=== PATIENT | female | born 1960 | race Caucasian/White ===

== ENCOUNTER 2017-05-11 10:50 | Inpatient (IN) ==
--- OUTSIDE RECORDS SUMMARY | 2017-05-11 11:08 | External Medical Summary ---
:1960 Author Organization eClinicalWorks Care Team Providers Name Role Phone Jorgito Cruz Provider Role Unavailable Allergies No Known Allergies Problems No Known Problems Medications No Known Medications Results No Known Results Summary Purpose eClinicalWorks Submission
[2017-05-11 11:22] VITALS: BMI 34.0
[2017-05-11] MEDS: INSULIN ASPART 100unit/ml INJECTION SQ SCH ×2 (13:56→17:48)
--- NOTE | 2017-05-11 14:53 | IRU History & Physical Report ---
HPI IRU Date: Date: 05/11/17 Time: 1441 Chief complaint: I'm weak HPI: Ms. Villegas is a very pleasant 56-year-old female referred by Dr. Umm Patel from [facility]. Her primary care provider is Dr. Gabriela Hernández in [facility]. History is obtained predominantly from the patient was secondarily from transfer records. The patient states that on the day of the Super Bowl, April 30, 2017 she developed recurrent nausea and vomiting. She vomited at least 7 times. She thought she was improving but also noted abdominal pain. She stayed home and did not go to work all week and apparently was not checking her blood sugars. It is not clear if she was taking her insulin or not. The patient had not called in and therefore a welfare check was performed. Responders had to break in to the patient's house. She was found on the floor. She does not know how long she was down. The first thing she remembers is awakening in the hospital. She was initially taken to the emergency department in [place] where she was intubated. She was hypothermic and had a blood sugar of over 1000 and had evidence of diabetic ketoacidosis. pH was 6.8. She was transferred immediately to [facility] in [place]. She was admitted to the critical care unit with severe diabetic ketoacidosis, metabolic acidosis, acute hypoxemic respiratory failure. She was on the mechanical ventilator from May 05 through May 07. She also had hyponatremia and hyperkalemia. She did have evidence of acute renal failure, rhabdomyolysis and pancreatitis. She was found to have new onset atrial fibrillation as well as a urinary tract infection. During that stay she demonstrated paroxysmal atrial fibrillation with rapid ventricular response. Heart rates were as high as 160s during the evening of 01/2018. Platelets did drop to 65,000 although assessment for heparin-induced cytopenia antibody were negative. She did require intravenous vasopressors for treatment of shock. She had evidence of multiorgan failure due to severe hypotension. At the present time she states that she simply feels very debilitated and weak. She has a lot of edema in her lower extremities which she states is not normal for her. Likely this is related to the fluid resuscitation. Last night at [facility] she did fall on her way to the bathroom. There is a small abrasion to her right elbow. No other trauma is noted and she denies any head trauma. The patient states that she has had diabetes for over 10 years. She was taking Lantus 16 units at at bedtime daily although actually did not recall the name of the insulin. She did not take any mealtime insulin. Her A1c was around 13% on 05/06/2017 at via [facility]. The patient states that she has not been very faithful about checking her blood sugars recently. She has lost from 300 pounds down to 190 pounds over the past several months. She says this was partly by intention. The patient states that she has had depression over the years. She is currently on Cymbalta for at least 10 years. In addition she has a rather flat affect and apathetic outlook. I asked if she would like to see a psychiatrist and she indicates that she would. The patient lives independently in her own home in [place]. She has 3 steps to get into her home from one direction and 2 steps from another direction. She is very independent at home and travels to a 10 [place] area with her job. Because the patient's recent severe/critical illness requiring mechanical ventilation and evidence of multiorgan failure, she has developed evidence of critical illness myopathy. This is also confirmed by her requirement for moderate assist for toilet transfers and maximum assist for walking. Prior level of functioning is as follows: She was independent for all parameters tested. Current level of functioning is as follows: She is independent for eating, requires supervision for grooming, requires moderate assistance for bathing, supervision for upper body dressing but moderate assistance for lower body dressing. She requires minimum assistance for toileting, supervision for bed/ chair/wheelchair transfers and moderate assistance for toilet transfers. She requires maximum assistance for walking. The patient has occasional swaying motion with ambulation and 2 episodes of scissoring. Patient has evidence of balance problems, difficulty with basic ADLs, mobility and safety awareness. Speech therapy has evaluated her and she was initially limited to soft solids with nectar thick liquids without straws. However, those restrictions have been lifted at the present time. She is unable to stand up from a sitting position without using significant arm strength support. The following medical conditions are noted and require active monitoring and/or management: 1. Critical illness myopathy: Based on current physical exam as well as requiring moderate assistance for toilet transfers and maximum assistance for walking. 2. Atrial fibrillation, intermittent with occasional rapid ventricular response 3. Diabetes mellitus type 1, not controlled with recent episode of diabetic ketoacidosis 4. Recent thrombocytopenia The following therapies will be needed: 1. Physical therapy: for transfers and ambulation and stairs. 2. Occupational therapy: for ADL's and transfers. 3. Medical management: for the above conditions. 4. 24 hour Rehabilitation Nursing to monitor and address the followin. Dietitian: For assistance with her diabetes management [facility] Patient Stated Medical History Cataracts Yes Diabetes Mellitus Type 2 Yes: 2008 Constipation No Hx Incontinence No Depression Yes Medical History Updates: 1. Diabetes mellitus for at least 10 years. She states she does not consistently check her blood sugars. 2. Benign essential hypertension. 3. Depression. 4. Intermittent atrial fibrillation (new diagnosis) Surgical History: Appendectomy Family History: Patient's father had heart surgery in his younger years and although he of a heart attack in his 80s. Mother is . She had dementia and had fallen in the detention. Also had strokes. 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 Review of Systems - Constitutional Constitutional: Present: fatigue, malaise, weight loss (patient lost from 300 pounds down 190 pounds over the last several months.). Absent: anorexia, chills , fever(s), headache(s), lethargy, night sweats, weakness, weight gain - EENMT Eyes: Absent: blurry vision, change in vision, diplopia Mouth/Throat: Absent: changes in swallowing, painful swallowing, change in taste , bleeding gums, change in voice - Cardiovascular Cardiovascular: Absent: chest pain, palpitations, syncope, dyspnea on exertion, orthopnea, edema, cyanosis, heart murmur Rhythm: Present: regular rhythm Vascular: Absent: intermittent claudication, pedal edema, unilateral swelling - Respiratory Respiratory: Present: cough (patient has a cough without sputum production, noted since the current episode of DKA.). Absent: dyspnea, hemoptysis, dyspnea on exertion, wheezing, pain on inspiration, chest congestion, excessive phlegm production - Gastrointestinal Gastrointestinal: Present: diarrhea (she has developed diarrhea recently.), dyspepsia (she describes symptoms of reflux esophagitis.). Absent: abdominal pain, change in bowel habits, constipation, dysphagia, early satiety, hematochezia, melena, nausea, vomiting - Genitourinary Genitourinary: Present: urinary incontinence - Musculoskeletal Musculoskeletal: Present: myalgias. Absent: abnormal gait, arthralgias, back pain, joint swelling, limited range of motion, muscle weakness - Integumentary/Breasts Integumentary: Absent: alopecia, erythema, lesions, pruritus, rash, jaundice - Neurological Neurological: Absent: abnormal gait, abnormal movements, abnormal speech, confusion, convulsions, dizziness, focal weakness, frequent falls, headache(s), loss of vision, memory loss, numbness, paresthesias, tremor(s) - Psychiatric Psychiatric: Present: depression, other (apathetic appearance). Absent: abnormal sleep pattern, anxiety - Endocrine Endocrine: Absent: cold intolerance, flushing, heat intolerance, palpitations - Hematologic/Lymphatic Hematologic/Lymphatic: Absent: easy bleeding, easy bruising, lymphadenopathy - Allergic/Immunologic Allergic/Immunologic: Absent: urticaria Medications Home Medications Medication Instructions Recorded Confirmed Type Apixaban [Eliquis] 5 mg PO BID 05/11/17 05/11/17 History Insulin Aspart [Novolog] 7 unit SQ TIDWM 05/11/17 05/11/17 History Insulin Detemir [Levemir] 20 unit SQ HS 05/11/17 05/11/17 History Levothyroxine Tab [Synthroid] 1 tab PO ACB 05/11/17 05/11/17 History Metoprolol Tartrate [Lopressor] 25 mg PO BIDWM 05/11/17 05/11/17 History Simvastatin [Zocor] 40 mg PO HS 05/11/17 05/11/17 History Results IRU - Labs Labs: Outside records from [facility] have been reviewed. Exam Vital Signs: Temperature 97.9 F 05/11/17 11:17 Pulse Rate 83 05/11/17 11:17 Respiratory Rate 16 05/11/17 11:17 Blood Pressure 134/72 05/11/17 11:17 Pulse Oximetry 96 05/11/17 11:17 Height/Weight/BMI: Height 1.73 m Weight 101.5 kg Body Mass Index 34.0 - Constitutional Present: no acute distress, well nourished, well developed, obese, cooperative - Routine HEENT Exam Head: Present: normocephalic, atraumatic. Absent: cushingoid faces, abrasion, laceration, hematoma Eye: Present: EOMI, PERRL, scleral injection (left eye is somewhat red.). Absent: conjunctival icterus, periorbital swelling, nystagmus ENT: Present: mucous membranes moist, oropharynx clear Comments: Patient has 2 aphthous lesions on the left lower lip. - Routine Neck Exam Present: supple, full ROM, trachea midline. Absent: lymphadenopathy, thyromegaly, tenderness, swelling - Routine Chest/Breast/Axilla Exam Chest wall: Absent: tenderness, mass Axillae: Absent: lymphadenopathy, mass - Routine Respiratory Exam Present: CTA bilaterally. Absent: accessory muscle use, decreased breath sounds , prolonged expiratory phase, rales, respiratory distress, rhonchi, stridor, wheezes, crackles, distant breath sounds - Routine Cardiovascular Exam Present: RRR, S1, S2, no murmur. Absent: gallop, S3, S4, click, irregular rhythm - Routine Abdominal Exam Present: soft, normoactive bowel sounds, non distended, non tender. Absent: rebound, guarding, firm, rigid, organomegaly, mass, hernia, wound - Routine Extremities Exam Present: no edema, non tender, pulses intact, normal capillary refill. Absent: cyanosis, clubbing - Routine Back/Spine/Pelvis Exam Back/Spine: Present: full ROM. Absent: scoliosis, kyphosis - Routine Skin Exam Present: intact, dry, warm. Absent: cyanosis, erythema, pallor, mottling, petechiae, urticaria, lesions, jaundice - Routine Neurological Exam Present: alert, oriented X3, CN II-XII intact, motor deficit (patient demonstrates proximal muscle weakness upon examination. This is most obviously noted when she is observed to stand from sitting position.), moving all extremities, normal speech - Routine Psychiatric Exam Present: normal affect, normal thought process, cooperative, good insight, good judgment. Absent: depressed, anxious Sepsis Assessment - Evaluation Severe Sepsis: none seen IRU A/P (1) Myopathy Current visit: Yes Status: Acute Patient displays evidence of critical illness myopathy. Proximal musculature appears to be weak based on examination and screening data. She will require PT and OT to improve her functional status. (2) DM type 1 (diabetes mellitus, type 1) Qualifiers: Diabetes mellitus complication status: without complication Qualified Code( s): E10.9 - Type 1 diabetes mellitus without complications Current visit: Yes Status: Chronic Patient has history of diabetes mellitus type 1. She was on only long-acting insulin she states. She did not monitor her blood sugars regularly. She has had a recent episode of diabetic ketoacidosis with resultant metabolic acidosis, respiratory failure, acute kidney injury and multiorgan failure. She'll require close medical management and monitoring. (3) Thrombocytopenia Current visit: Yes Status: Acute Based on transfer records her platelet count was down to 66,000. She is at risk for bleeding. We will monitor this carefully. (4) Atrial fibrillation Qualifiers: Atrial fibrillation type: paroxysmal Qualified Code(s): I48.0 - Paroxysmal atrial fibrillation Current visit: Yes Status: Acute She has a new diagnosis of atrial fibrillation symptoms with rapid ventricular response. She is on Eliquis. We will monitor this carefully. (5) Depression Qualifiers: Depression Type: unspecified Qualified Code(s): F32.9 - Major depressive disorder, single episode, unspecified Current visit: Yes Status: Chronic Patient history of depression. She would like to visit with a psychiatrist in this regard. (6) Aphthous ulcer of mouth Current visit: Yes Status: Acute DVT Prophylaxis: SCD's, Eliquis Resuscitation Status: Full Code - Course Hospital Course: Michael Nichole MD: - Interventions to Obtain Goals PT Treatment Plan: Balance/Proprioception, Functional Activities, Gait Training , Patient/Family Education, Therapeutic Exercise OT Treatment Plan: ADL (Basic Care), Balance Training, IADL, Pt./Family Education Goals Progress/Modifications: This medically complex patient will be seen by physical therapy and occupational therapy. She has evidence of myopathy and will require significant strengthening in a multidisciplinary manner. She has deficits in ADLs as well as ambulation etc. The patient will also be monitored by rehabilitation nursing to monitor her blood sugars, blood pressure and evidence of hypoxemic respiratory failure. She will require medical supervision.
--- NOTE | 2017-05-11 15:27 | IRU 24Hr Post Admit Eval ---
24 Hr Post Admission Physical - Relevant Changes Relevant Changes: No Reviewed: I have reviewed the patient's information and concur with the finding and results of the pre-admission screen. Certification: I certify the patient for rehabilitation. - Patient Condition (1) Myopathy Status: Acute Code(s): G72.9 - Myopathy, unspecified Classification: Present on IRF Admission, IRF Tx That Should Address Diagnosis, Diagnosis Requiring Medical Follow Up (2) DM type 1 (diabetes mellitus, type 1) Status: Chronic Qualifiers: Diabetes mellitus complication status: with hyperglycemia Qualified Code(s) : E10.65 - Type 1 diabetes mellitus with hyperglycemia Code(s): E10.9 - Type 1 diabetes mellitus without complications Classification: Present on IRF Admission, IRF Tx That Should Address Diagnosis, Diagnosis Requiring Medical Follow Up (3) Thrombocytopenia Status: Acute Code(s): D69.6 - Thrombocytopenia, unspecified Classification: IRF Tx That Should Address Diagnosis, Diagnosis Requiring Medical Follow Up (4) Atrial fibrillation Status: Acute Qualifiers: Atrial fibrillation type: paroxysmal Qualified Code(s): I48.0 - Paroxysmal atrial fibrillation Code(s): I48.91 - Unspecified atrial fibrillation Classification: Present on IRF Admission, IRF Tx That Should Address Diagnosis, Diagnosis Requiring Medical Follow Up (5) Depression Status: Chronic Qualifiers: Depression Type: unspecified Qualified Code(s): F32.9 - Major depressive disorder, single episode, unspecified Code(s): F32.9 - Major depressive disorder, single episode, unspecified Classification: Present on IRF Admission, IRF Tx That Should Address Diagnosis, Diagnosis Requiring Medical Follow Up (6) Aphthous ulcer of mouth Status: Acute Code(s): K12.0 - Recurrent oral aphthae Classification: Present on IRF Admission, IRF Tx That Should Address Diagnosis, Diagnosis Requiring Medical Follow Up - Prior Functional Status Lives With: Alone Residence Type: Apartment/Private Home Assitive Devices: None Prior Functional Status: Indep. at home or school, Indep. w/ IADL - Current Functional Status Current Level of Function: Current level of functioning is as follows: She is independent for eating, requires supervision for grooming, requires moderate assistance for bathing, supervision for upper body dressing but moderate assistance for lower body dressing. She requires minimum assistance for toileting, supervision for bed/ chair/wheelchair transfers and moderate assistance for toilet transfers. She requires maximum assistance for walking. The patient has occasional swaying motion with ambulation and 2 episodes of scissoring. Patient has evidence of balance problems, difficulty with basic ADLs, mobility and safety awareness. Speech therapy has evaluated her and she was initially limited to soft solids with nectar thick liquids without straws. However, those restrictions have been lifted at the present time. She is unable to stand up from a sitting position without using significant arm strength support. Patient Requirements: The patient requires oversight by rehabilitation physician to manage their rehabilitation treatment plan and multidisciplinary approach to care that can only be provided in an IRF and requires a multidisciplinary approach to care, provided by professional PTs, OTs, STs, dieticians, RTs, rehabilitation nurses and is not available in lesser levels of care. Limitations Req: Mobility Impairment, ADL Impairment Physical Therapy Minutes: 90 Occupational Therapy Minutes: 90 Therapy: The patient is to receive therapy at least 5 days a week. - Complications/Comorbidities Impact on Functional Outcomes: The patient's myopathy weakness may negatively impact her functional outcome. Barriers to Discharge: Weakness, Balance, Endurance - Plan to Avoid Complications Plan to Avoid Complications: The patient cannot receive this care in a lesser intensive setting such as [facility] or Outpatient Therapy due to the patient requiring the following : The patient requires close monitoring of her blood sugars, blood pressure as well as a multidisciplinary approach with PT, OT and 24 rehabilitation nursing to allow her to regain her strength and functional capabilities. Because of her medical complexity, she requires medical supervision. .
[2017-05-11] MEDS ORDERED: PNEUMOCOCCAL 13 VACCINE 0.5ml INJECTION IM ONE (18:04)
[2017-05-11] MEDS: APIXABAN 5 MG TABLET PO SCH (20:40)
[2017-05-11] MEDS: INSULIN DETEMIR 100unit/ml INJECTION SQ SCH (20:40)
[2017-05-11] MEDS: SIMVASTATIN 40 MG TABLET PO SCH (20:40)
[2017-05-12] MEDS: ACETAMINOPHEN 325 MG TABLET PO PRN ×2 (05:22→21:56)
[2017-05-12] MEDS: LEVOTHYROXINE 100 MCG TABLET PO SCH (05:47)
--- NOTE | 2017-05-12 08:55 | Consult Note ---
Consult Information - Data of Consult Consult date: 05/11/17 Requesting Physician: Michael Nichole MD Primary Care Provider: Dr. Hernández in [place] - Consult Narrative Reason for consult: DM, A-fib, hypokalemia History of present illness: Donita Villegas is a 56-year-old woman seen in consultation from Dr. Nichole. She was transferred to [facility] on 05/11/17 from [facility]. She states that she first became ill on Monday on 04/30/17 with nausea, vomiting and abdominal pain. She spoke with one of her sisters on 05/03/17 and reported she was feeling a bit better, but was reportedly vague about blood sugar results and whether or not she took insulin. She didn't present to work all week , nor had she called in. 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, and this behavior is unlike her. A welfare check was called, and she was found down on 05/05/17 and was initially transferred to the emergency department in [place] , which is where she lives. On arrival there, she was severely acidotic with a pH of 6.8 and also had a blood sugar over 1000 and K of 6.7. She was stabilized , intubated and transferred to [place]. There she was diagnosed with severe diabetic ketoacidosis treated with insulin and bicarb for metabolic acidosis, acute hypoxemic respiratory failure requiring mechanical ventilation from through 05/07/17, new onset A. fib with RVR with rates into the 160s, MARIAN with initial creatinine of 2.27, metabolic encephalopathy. She required vasopressor support for hypotension, and a central line was placed in her IJ. Her rhythm converted to sinus rhythm prior to discharge. Hgb A1c was 13.3%. She had rhabdomyolysis (CK 1912) and pancreatitis (lipase 910). She was also diagnosed with a mild UTI, treated with Rocephin. She also had problems with electrolytes with hyponatremia (low of 128), hyperkalemia (5.8 on admission and treated with calcium at [place]), and later hypokalemia, hypophosphatemia, which were corrected. Total bili initially was 1.4 and ammonia was 91; both of these labs showed rapid improvement. Platelet count dropped to 65,000, though heparin-induced cytopenia antibody was negative. TSH was slightly elevated at 5.88, free T4 was normal at 0.8. Prealbumin was low at 13. Multiple radiologic tests were done: Head CT was negative; Echo showed hyperdynamic left ventricle with EF of 80-85% but otherwise was unremarkable; CXR by 05/06 was showing edema ; EKG by 05/06 was sinus. On day of discharge, K was still low at 3.0; Na 141, BUN was 8, creatinine 0.68. Her art line, central line, and Browne were dc'd prior to transfer to IRU. Donita was seen in the morning of 05/12/17. She feels weak overall. She feels achy everywhere. She has had drooling problems ever since her recent hospitalization , has a sore spot on her lower lip, and her throat is a little sore. She has a mild cough, also since hospitalization. She gets dizzy/lightheaded if she stands too quickly, but this is rare. She had a fall at [facility] and has a small skin tear to her right elbow. She denies abdominal pain, nausea, vomiting, diarrhea, or constipation, or hematochezia, but her bowels have been a little loose. She infrequently gets heartburn and takes TUMS at home. She has been edematous, also noted just since hospitalization. No chest pain, palpitations, SOA, fever, dysuria or urinary retention. No paresthesias or focal neuro deficits. She states that she usually takes Cymbalta 60 mg each night for depression, but for some reason this medication wasn't continued. She would like to restart Cymbalta. Past Medical History Patient Stated Medical History Cataracts Yes Diabetes Mellitus Type 2 Yes: 2008 Constipation No Hx Incontinence No Depression Yes Medical History Updates: 1. Diabetes mellitus for at least 10 years. She states she does not consistently check her blood sugars. 2. Benign essential hypertension. 3. Depression. 4. Intermittent atrial fibrillation (new diagnosis) Surgical History: Appendectomy Family History Updates: Father of a heart attack in his 80s. Mother had dementia, strokes, and hx of falling. She at age 86. She has 1 older brother who was recently diagnosed with lung cancer. Two sisters are healthy. 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 [employer] Current residence: Apartment/Private Home Review of Systems All systems PM: 10-point ROS was reviewed, no additional remarkable complaints except - Constitutional Constitutional: Present: as per HPI - EENMT Eyes: Present: requires corrective lenses Balance: Present: as per HPI Nose: Absent: obstruction Mouth/Throat: Present: as per HPI - Cardiovascular Cardiovascular: Present: as per HPI Vascular: Present: see HPI - Respiratory Respiratory: Present: as per HPI - Gastrointestinal Gastrointestinal: Present: as per HPI - Genitourinary Genitourinary: Present: as per HPI - Musculoskeletal Musculoskeletal: Present: as per HPI - Integumentary/Breasts Integumentary: Present: as per HPI - Neurological Neurological: Present: as per HPI - Psychiatric Psychiatric: Present: as per HPI - Endocrine Endocrine: Present: as per HPI - Hematologic/Lymphatic Hematologic/Lymphatic: Present: easy bleeding, easy bruising (for about 1 year) Medications Home Medications Medication Instructions Recorded Confirmed Type Apixaban [Eliquis] 5 mg PO BID 05/11/17 05/11/17 History Insulin Aspart [Novolog] 7 unit SQ TIDWM 05/11/17 05/11/17 History Insulin Detemir [Levemir] 20 unit SQ HS 05/11/17 05/11/17 History Levothyroxine Tab [Synthroid] 1 tab PO ACB 05/11/17 05/11/17 History Metoprolol Tartrate [Lopressor] 25 mg PO BIDWM 05/11/17 05/11/17 History Simvastatin [Zocor] 40 mg PO HS 05/11/17 05/11/17 History Allergies Allergy/AdvReac Type Severity Reaction Status Date / Time No Known Allergies Allergy Verified 05/11/17 17:47 Exam Vital Signs: Temperature 98.1 F 05/11/17 21:47 Pulse Rate 81 05/12/17 00:00 Respiratory Rate 16 05/11/17 21:47 Blood Pressure 128/72 05/11/17 21:47 Pulse Oximetry 94 05/11/17 21:47 Height/Weight/BMI: Height 1.73 m Weight 101.5 kg Body Mass Index 34.0 - Constitutional Present: no acute distress, well nourished, well developed - Routine HEENT Exam Head: Present: normocephalic Eye: Present: EOMI, PERRL. Absent: conjunctival icterus ENT: Present: mucous membranes moist Comments: mild subconjunctival hemorrhage to left eye - Routine Neck Exam Present: supple. Absent: lymphadenopathy - Routine Respiratory Exam Present: CTA bilaterally - Routine Cardiovascular Exam Present: RRR, S1, S2, murmur (systolic 2/6) - Routine Abdominal Exam Present: soft, non distended, non tender. Absent: normoactive bowel sounds ( slightly hypoactive) - Routine Extremities Exam Present: edema (2+ BLE), normal capillary refill - Routine Skin Exam Present: intact, dry, warm, wounds (abrasion to right elbow) - Routine Neurological Exam Present: alert, oriented X3, CN II-XII intact, normal speech - Routine Psychiatric Exam Present: normal affect, normal thought process, cooperative Results - Labs CBC & Chem 7: 05/12/17 04:34 05/12/17 15:23 Assessment and Plan Assessment and Plan: ASSESSMENT AND PLAN Recent hospitalization for Acute hypoxic respiratory failure requiring mechanical ventilation (extubated on 05/07/17); shock/multiorgan failure requiring vasopressor support; DKA and metabolic acidosis; severe dehydration; PAF with relatively normal echo; prerenal MARIAN (creatinine peaked at 2.27); mild pancreatitis; rhabdomyolysis; elevated total bilirubin and ammonia level; multiple electrolyte abnormalities; mild UTI treated with Rocephin and without urine culture; thrombocytopenia with platelet count of 65, and heparin was dc' d. She had a central line, art line, and Browne while hospitalized. On discharge , she also had a mild subconjunctival hemorrhage to her left eye, and a sore spot on her lower lip, presumably from ET tube. She was diagnosed with hypothyroidism and started on levothyroxine. Hypokalemia, POA. Unable to tolerate KDUR tablets; will give IV bolus and start KCl suspension. check mg. Repeat K this afternoon. DM2, uncontrolled, with hgb A1c of 13.3%, requiring long-term insulin therapy. Hyperglycemic on admission with BGM >200 -- will monitor BGM for 24 hrs before making adjustments. PAF, now sinus. Monitor tele. CHADS2-VASC is 3 for which she has indication for lifelong anticoagulation for stroke prophylaxis. Continue Eliquis and BB. Will need to f/u with Dr. Sofia in 2-4 weeks. Acute respiratory failure, resolved. IS, activity. MARIAN, resolved. Monitor renal status. Encephalopathy has resolved. Depression. Restart Cymbalta (reportedly home med). Infrequent heartburn. TUMS PRN. Continue Synthroid. Thrombocytopenia. Monitor counts. SCDs for PPX. HIT antibodies negative @ [facility]. Left eye subconjunctival hemorrhage. saline eye drops PRN Hyperlipidemia - on statin. Obesity with BMI 34.0 Thank you for this consultation. We will follow Donita along with you during her IRU course. Outside records reviewed in detail. DVT Prophylaxis: SCD's Resuscitation Status: Full Code - Physician Narrative Physician: Palmer Perla MD Narrative: Date: 05/12/17 Time: 1914 Have independently interviewed and examined pt. Chart reviewed. Case discussed with my BINDERY CUTTER OPERATOR. Above care plan developed with my supervision; agree with above. Admitted to IRU for restorative modalities following critical illness. Today has been rough-not able to do therapy. Needing IV potassium. Had frequent loose stool. Not slight nausea. Oral drive decreased. Breathing stable-some cough with deep breathing, chest congestion decreasing. Not having chest pressure or pain. Lungs: decreased, no distress CV: regular AB: soft nt/nd BS decreased EXT: + 3BLE MSE: awake alert Plan: Agree with admission to IRU to maximize functional status. PT/OT to help improve abilities. Monitor blood sugars, adjusting insulins as needed. Continue medications initiated at prior hospital. Would hold on LORI/ARB at this time due to resolving MARIAN, need to consider in future secondary to DM. Encourage pulmonary toilet. Will need monitoring of electrolytes and renal status due to medications. Medically stable for IRU floor activities. Hospital Course Summary Disclaimer: The visit summary below is not to be considered part of the above Progress Note. Hospital Course: ASSESSMENT AND PLAN Recent hospitalization for Acute hypoxic respiratory failure requiring mechanical ventilation (extubated on 05/07/17); shock/multiorgan failure requiring vasopressor support; DKA and metabolic acidosis; severe dehydration; PAF with relatively normal echo; prerenal MARIAN (creatinine peaked at 2.27); mild pancreatitis; rhabdomyolysis; elevated total bilirubin and ammonia level; multiple electrolyte abnormalities; mild UTI treated with Rocephin and without urine culture; thrombocytopenia with platelet count of 65, and heparin was dc' d. She had a central line, art line, and Browne while hospitalized. On discharge , she also had a mild subconjunctival hemorrhage to her left eye, and a sore spot on her lower lip, presumably from ET tube. She was diagnosed with hypothyroidism and started on levothyroxine. Hypokalemia, POA. Unable to tolerate KDUR tablets; will give IV bolus and start KCl suspension. check mg. Repeat K this afternoon. DM2, uncontrolled, with hgb A1c of 13.3%, requiring long-term insulin therapy. Hyperglycemic on admission with BGM >200 -- will monitor BGM for 24 hrs before making adjustments. PAF, now sinus. Monitor tele. CHADS2-VASC is 3 for which she has indication for lifelong anticoagulation for stroke prophylaxis. Continue Eliquis and BB. Will need to f/u with Dr. Sofia in 2-4 weeks. Acute respiratory failure, resolved. IS, activity. MARIAN, resolved. Monitor renal status. Encephalopathy has resolved. Depression. Restart Cymbalta (reportedly home med). Infrequent heartburn. TUMS PRN. Continue Synthroid. Thrombocytopenia. Monitor counts. SCDs for PPX. HIT antibodies negative @ [facility]. Left eye subconjunctival hemorrhage. saline eye drops PRN Hyperlipidemia - on statin. Obesity with BMI 34.0 Addendum entered and electronically signed by Yoly Bailey APRN 05/12/17 15: 47: BGM increased >300 prior to lunch. Gave 11U and increased mealtime insulin to 10U TID. After lunch BG increased >400 and moderate dosed SSI ordered. Diabetic education being done.
[2017-05-12] MEDS: INSULIN ASPART 100unit/ml INJECTION SQ SCH ×2 (09:49→18:21)
[2017-05-12] MEDS: LIDOCAINE 1% INJ 10 MG, POTASSIUM CHLORIDE INJ 10 MEQ in NS 100 ML IV SCH ×4 (09:50→13:24)
[2017-05-12] MEDS: APIXABAN 5 MG TABLET PO SCH ×2 (09:50→21:30)
--- NOTE | 2017-05-12 10:19 | IRU Progress Note ---
- Subjective/Serverity of Illness Date: 05/12/17 Ms. Villegas is settling into the rehabilitation routine. She says that she is doing reasonably well although the left eye rivas a bit. There is some scleral injection. This is been red ever since she awakened in [place] after her DKA experience. The patient has developed significant hypokalemia and is on intravenous potassium rider as well as oral potassium supplementation. For this reason therapy is being held. She denies any chest pain or shortness of breath. Her appetite is reasonably good. Update on medical problems are actively monitoring or managing as follows: 1. Critical illness myopathy: No change at the present time. She is just getting started with therapy. 2. Atrial fibrillation, intermittent with occasional rapid ventricular response : Her heart rhythm sounds regular at the present time. She does have a systolic murmur. She says that she has had this investigated with an echocardiogram previously. She is on Eliquis. 3. Diabetes mellitus type 1, not controlled with recent episode of diabetic ketoacidosis: Her blood sugars are running a bit high at the present time. Management per hospitalists. 4. Recent thrombocytopenia: This has resolved 5. Hypokalemia: I told her that this was extremely common after being treated for DKA (on the basis of acidosis). She is likely total body depleted with regard to her potassium. She is now on supplemental potassium intravenously and orally. However until this comes up we will hold therapy. Exam Vital Signs: Temperature 98.1 F 05/11/17 21:47 Pulse Rate 81 05/12/17 00:00 Respiratory Rate 16 05/11/17 21:47 Blood Pressure 128/72 05/11/17 21:47 Pulse Oximetry 94 05/11/17 21:47 Height/Weight/BMI: Height 1.73 m Weight 101.5 kg Body Mass Index 34.0 - Constitutional Present: no acute distress, well nourished, well developed, obese, cooperative - Routine HEENT Exam Head: Present: normocephalic Eye: Present: EOMI, scleral injection (left sclera is a bit red. Pupils reactive.) ENT: Present: mucous membranes moist, dentition normal - Routine Neck Exam Present: supple - Routine Respiratory Exam Present: CTA bilaterally. Absent: dyspnea, decreased breath sounds, wheezes, crackles - Routine Cardiovascular Exam Present: RRR, S1, S2, murmur (murmur noted left sternal border grade 2/6.). Absent: S3, S4 - Routine Abdominal Exam Present: soft, normoactive bowel sounds, non distended. Absent: tenderness - Routine Extremities Exam Present: edema (trace to 1+ edema as before.), normal capillary refill - Routine Skin Exam Present: dry, warm - Routine Neurological Exam Present: alert, oriented X3, CN II-XII intact - Routine Psychiatric Exam Present: normal affect, cooperative. Absent: good insight (I feel as though the patient may minimize her symptoms and problems.) Results IRU - Labs Labs: Have reviewed laboratory and other chart information. IRU A/P (1) Myopathy Current visit: Yes Status: Acute Continues to demonstrate evidence of critical illness myopathy. We are holding therapy until potassium improved. (2) DM type 1 (diabetes mellitus, type 1) Qualifiers: Diabetes mellitus complication status: with hyperglycemia Qualified Code(s) : E10.65 - Type 1 diabetes mellitus with hyperglycemia Current visit: Yes Status: Chronic Blood sugars running a bit high. Per hospitalist service. (3) Thrombocytopenia Current visit: Yes Status: Resolved Current platelet count is now normal. (4) Atrial fibrillation Qualifiers: Atrial fibrillation type: paroxysmal Qualified Code(s): I48.0 - Paroxysmal atrial fibrillation Current visit: Yes Status: Acute Sounds as though she is in a regular mechanism at present. She is on Eliquis. (5) Depression Qualifiers: Depression Type: unspecified Qualified Code(s): F32.9 - Major depressive disorder, single episode, unspecified Current visit: Yes Status: Chronic In addition to depression which she expresses, she seems to have an almost apathetic outlook. Awaiting psychiatry evaluation. (6) Aphthous ulcer of mouth Current visit: Yes Status: Acute Patient using "Swizzle" solution. DVT Prophylaxis: SCD's, Eliquis Resuscitation Status: Full Code - Course Hospital Course: Michael Nichole MD: 05/12/17 10:21 Patient has been cooperative with therapy. Potassium now although and on supplement. Heart sounds regular. Sugars running a bit high. - Interventions to Obtain Goals PT Treatment Plan: Balance/Proprioception, Functional Activities, Gait Training , Patient/Family Education, Therapeutic Exercise OT Treatment Plan: ADL (Basic Care), Balance Training, IADL, Pt./Family Education Goals Progress/Modifications: Time spent with patient and on floor reviewing data and documentin min Medical decision-making: I made the decision to hold therapy at the present time in view of her hypokalemia. She is asymptomatic at the present time and receiving supplemental potassium both intravenously and orally. We will reassess potassium (per hospitalist service). She does have some scleral redness on the left side of uncertain etiology. There is no discharge noted. Finally, her blood sugars are running a bit high. Please note that the patient's individual plan of care was developed and documented today, requiring review of therapy notes, medical conditions and anticipated functional recovery. This required additional medical decision making with regard to interaction of the patient's medical issues with the anticipated functional recovery. Please see separate document
[2017-05-12] MEDS ORDERED: INSULIN ASPART 100unit/ml INJECTION SQ ONE ×2 (12:00→15:33)
[2017-05-12] MEDS: POTASSIUM CHLORIDE 20 MEQ/15 ML ORAL LIQUID PO SCH ×2 (12:15→18:21)
--- NOTE | 2017-05-12 14:01 | IRU Plan of Care ---
[facility] Overall Plan of Care - Date Date: 05/12/17 - Patient Impairments (1) Atrial fibrillation Qualifiers: Atrial fibrillation type: paroxysmal Qualified Code(s): I48.0 - Paroxysmal atrial fibrillation Code(s): I48.91 - Unspecified atrial fibrillation Status: Acute Classification: Present on IRF Admission, IRF Tx That Should Address Diagnosis, Diagnosis Requiring Medical Follow Up (2) Myopathy Code(s): G72.9 - Myopathy, unspecified Status: Acute Classification: Present on IRF Admission, IRF Tx That Should Address Diagnosis, Diagnosis Requiring Medical Follow Up (3) DM type 1 (diabetes mellitus, type 1) Qualifiers: Diabetes mellitus complication status: with hyperglycemia Qualified Code(s) : E10.65 - Type 1 diabetes mellitus with hyperglycemia Code(s): E10.9 - Type 1 diabetes mellitus without complications Status: Chronic Classification: Present on IRF Admission, IRF Tx That Should Address Diagnosis, Diagnosis Requiring Medical Follow Up (4) Depression Qualifiers: Depression Type: unspecified Qualified Code(s): F32.9 - Major depressive disorder, single episode, unspecified Code(s): F32.9 - Major depressive disorder, single episode, unspecified Status : Chronic Classification: Present on IRF Admission, IRF Tx That Should Address Diagnosis, Diagnosis Requiring Medical Follow Up - Relevant Changes Relevant Changes: No Reviewed: I have reviewed the patient's information and concur with the finding and results of the pre-admission screen. Certification: I certify the patient for rehabilitation. - Medical Prognosis Medical Prognosis: Good Vital Signs: Last Vital Signs Temp 98.3 F 05/12/17 08:00 Pulse 79 05/12/17 08:00 Resp 14 05/12/17 08:00 BP 133/69 05/12/17 08:00 Pulse Ox 97 05/12/17 08:00 - Anticipated Interventions Anticipated Interventions: The patient requires inpatient IRF care for PT, OT, and/or ST for residuals remaining from critical illness myopathy from severe DKA with multisystem failure resulting in muscular weakness and strength deficits. An individualized overall plan of care has been developed after careful review of the patient's preadmission screening, post admission physician evaluation and assessments of all therapy disciplines and/or other pertinent clinicians involved in treating the patient. This indicates medical necessity and rehabilitation necessity have been established through a thorough review of all available medical information. - Current Functional Status Failed Alternative Therapy: Arrived from Acute Care Patient Requires: The patient requires oversight by rehabilitation physician to manage their rehabilitation treatment plan and multidisciplinary approach to care that can only be provided in an IRF and requires a multidisciplinary approach to care, provided by professional PTs, OTs,rehabilitation nurses, and may require STs, dieticians, and RTS. This is not available in lesser levels of care. Physical Therapy Minutes: 90 Occupational Therapy Minutes: 90 Therapy: The patient is to receive therapy at least 5 days a week. - Anticipated LOS/Outcomes Anticipated Functional Outcome: Expected functional improvements include: -- Modified independant to independant ambulation with or without assistive device -- Modified independant to independant ADL's with or without assistive device -- Return to pre-morbid level of mobility -- Maximize level of mobility and ADL's to decrease burden on any caregiver involved with this patient's care It is anticipated the patient will have adequately controlled blood sugars at the time of dismissal, but requiring further outpatient follow-up. Anticipated Length of Stay (days): 10 Anticipated DC Destination: Home, Self Care, Home Health Service Home Safety Plan: The patient will be provided with the development of a Home Safety Plan for return to a home or home-like environment and and to ensure safety post discharge. - Plan to Avoid Complications Barriers to Attaining Goals: Weakness, Endurance, Medical Limitation Plan to Avoid Complications: The patient cannot receive this care in a lesser intensive setting such as Senior Living or Outpatient Therapy due to the patient requiring the following : Because of the patient's severe critical illness myopathy she is a fall risk and requires close monitoring by rehabilitation nursing. In addition, she requires close monitoring of her blood sugars in view of her recent diabetic ketoacidosis. She requires a multidisciplinary coordinated approach in view of her medical problems and severe weakness.
--- NOTE | 2017-05-12 16:21 | Neuropsychiatric Consult ---
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 Psychiatry was consulted due to concerns for uncontrolled depression. Per primary team: "The patient states that on the day of the Super Bowl, April 30, 2017 she developed recurrent nausea and vomiting. She vomited at least 7 times. She thought she was improving but also noted abdominal pain. She stayed home and did not go to work all week and apparently was not checking her blood sugars. It is not clear if she was taking her insulin or not. The patient had not called in and therefore a welfare check was performed. Responders had to break in to the patient's house.She was found on the floor. She does not know how long she was down. The first thing she remembers is awakening in the hospital. She was initially taken to the emergency department in [place] where she was intubated. She was hypothermic and had a blood sugar of over 1000 and had evidence of diabetic ketoacidosis. pH was 6.8. She was transferred immediately to [facility] in [place]. She was admitted to the critical care unit with severe diabetic ketoacidosis, metabolic acidosis, acute hypoxemic respiratory failure. She was on the mechanical ventilator from May 05 through May 07. She also had hyponatremia and hyperkalemia. She did have evidence of acute renal failure, rhabdomyolysis and pancreatitis. She was found to have new onset atrial fibrillation as well as a urinary tract infection. During that stay she demonstrated paroxysmal atrial fibrillation with rapid ventricular response. Heart rates were as high as 160s during the evening of 05/07/2017. Platelets did drop to 65,000 although assessment for heparin-induced cytopenia antibody were negative. She did require intravenous vasopressors for treatment of shock. She had evidence of multiorgan failure due to severe hypotension. At the present time she states that she simply feels very debilitated and weak. She has a lot of edema in her lower extremities which she states is not normal for her. Likely this is related to the fluid resuscitation. Last night at [facility] she did fall on her way to the bathroom. There is a small abrasion to her right elbow. No other trauma is noted and she denies any head trauma. The patient states that she has had diabetes for over 10 years. She was taking Lantus 16 units at at bedtime daily although actually did not recall the name of the insulin. She did not take any mealtime insulin. Her A1c was around 13% on 05/06/2017 at via [facility]. The patient states that she has not been very faithful about checking her blood sugars recently. She has lost from 300 pounds down to 190 pounds over the past several months. She says this was partly by intention. The patient states that she has had depression over the years. She is currently on Cymbalta for at least 10 years. In addition she has a rather flat affect and apathetic outlook. I asked if she would like to see a psychiatrist and she indicates that she would. The patient lives independently in her own home in [place]. She has 3 steps to get into her home from one direction and 2 steps from another direction. She is very independent at home and travels to a 10 [place] area with her job. Because the patient's recent severe/critical illness requiring mechanical ventilation and evidence of multiorgan failure, she has developed evidence of critical illness myopathy. This is also confirmed by her requirement for moderate assist for toilet transfers and maximum assist for walking." On interview patient admits multiple stressors. She says that she is to some extent a hoarder and now that she is in the hospital, her family has found out. One sister is very helpful but the other is quite vocal about her dislike of this and tells others. Another brother was recently diagnosed with lung cancer as well. Patient states that she was previously on Cymbalta 60mg PO q HS (she likes it in the evening) and found it helpful, but this wasn't restarted in the hospital. She has tried multiple other antidepressants, including Zoloft and Paxil, but Cymbalta was most helpful. She denies any history of suicide attempts or psychiatric hospitalizations, though she endorses some minor cutting years ago. She saw Dr. Aminah Hale and saw a therapist for a time which was very helpful. She would like to continue this after discharge. She endorses poor energy and lower motivation, moreso after d/c of Cymbalta. She continues to like to engage with others but prefers to do so out of her own house. Patient denies any history of HI or AVH. She denies any history of symptoms consistent with bipolar disorder. Depression: Loss of Energy, Changes in Appetite, Low Self Esteem [facility] Patient Stated Medical History Cataracts Yes Diabetes Mellitus Type 2 Yes: 2008 Constipation No Hx Incontinence No Depression Yes Medical History Updates: 1. Diabetes mellitus for at least 10 years. She states she does not consistently check her blood sugars. 2. Benign essential hypertension. 3. Depression. 4. Intermittent atrial fibrillation (new diagnosis) Surgical History: Appendectomy Family History: Paternal grandmother: depression - Social History Smoking status: Never smoker Substance use type: does not use Alcohol intake frequency: holidays/special occasions only Housing: house Household members: none Current occupational status: employed ( with [employer]) Current residence: Apartment/Private Home Social history: Has Bachelor's degree in . Never , no children. Has supportive family member and friends. Lives by herself. Review of Systems All systems: reviewed and no additional remarkable complaints except as stated - Constitutional Constitutional: Present: as per HPI, weakness, weight loss - EENMT Balance: Present: as per HPI Nose: Absent: obstruction Mouth/Throat: Present: as per HPI - Cardiovascular Cardiovascular: Present: as per HPI Vascular: Present: see HPI - Gastrointestinal Gastrointestinal: Present: diarrhea (today) - Neurological Neurological: Present: as per HPI. Absent: memory loss - Psychiatric Psychiatric: Present: as per HPI, depression Mental Status Exam Vitals: Last Vital Signs Temp 98.3 F 05/12/17 08:00 Pulse 88 05/12/17 08:00 Resp 14 05/12/17 08:00 BP 133/69 05/12/17 08:00 Pulse Ox 97 05/12/17 08:00 Height: 1.73 m Weight: 96.2 kg - Mental Status Exam Muscle Strength/Tone: Other (weakness part of admission to IRU) Dressing: Casual Grooming: Fair (likely decreased from baseline) Attitude: Cooperative Eye Contact: Fair Speech: Normal Volume: Normal Rhythm: Appropriate Rhythm Orientation: Oriented X4 Mood: Depressed Affect: Sad Rate of Thoughts: Appropriate Rate Thought Organization: Organized Associations: Intact Abstract Reasoning: Intact, able to abstract Thought Content: Ruminations, Somatic Concerns Perception/Psychotic: Perception Normal Language: Naming Intact Fund of Knowledge: Appropriate Memory: Grossly Intact Suicidal Ideation: Denies Homicidal Ideation: Denies Insight: Fair Judgement: Fair Impulse Control: Good - Laboratory Result Diagrams: 05/15/17 04:48 05/15/17 04:48 Laboratory Results - last 24 hr 05/11/17 05/12/17 05/12/17 19:47 04:34 04:34 WBC 6.6 RBC 3.60 L Hgb 11.3 L Hct 34.3 L MCV 95.3 MCH 31.4 MCHC 32.9 RDW Std Deviation 42.9 Plt Count 239 MPV 9.0 L Immature Gran % (Auto) 1.1 H Neut % (Auto) 64.2 Lymph % (Auto) 19.7 L Bandera % (Auto) 10.4 H Eos % (Auto) 4.1 H Baso % (Auto) 0.5 Neut # (Auto) 4.2 Lymph # (Auto) 1.3 Bandera # (Auto) 0.7 Eos # (Auto) 0.3 Baso # (Auto) 0.0 Abs Immat Gran (auto) 0.07 H Turbidity < 20 Sodium 145 H Potassium 2.8 L* Chloride 107 Carbon Dioxide 28 Anion Gap 10 BUN 10.0 Creatinine 0.5 L GFR Calculation 128 BUN/Creatinine Ratio 20 Glucose 185 H Glucometer 284 Calculated Osmolality 283 H Calcium 7.9 L Magnesium Icterus Index < 2 Specimen Hemolysis < 15 05/12/17 05/12/17 05/12/17 04:34 05:57 10:26 WBC RBC Hgb Hct MCV MCH MCHC RDW Std Deviation Plt Count MPV Immature Gran % (Auto) Neut % (Auto) Lymph % (Auto) Bandera % (Auto) Eos % (Auto) Baso % (Auto) Neut # (Auto) Lymph # (Auto) Bandera # (Auto) Eos # (Auto) Baso # (Auto) Abs Immat Gran (auto) Turbidity Sodium Potassium Chloride Carbon Dioxide Anion Gap BUN Creatinine GFR Calculation BUN/Creatinine Ratio Glucose Glucometer 183 348 Calculated Osmolality Calcium Magnesium 1.8 Icterus Index Specimen Hemolysis 05/12/17 05/12/17 05/12/17 11:41 14:49 15:23 WBC RBC Hgb Hct MCV MCH MCHC RDW Std Deviation Plt Count MPV Immature Gran % (Auto) Neut % (Auto) Lymph % (Auto) Band[place] % (Auto) Eos % (Auto) Baso % (Auto) Neut # (Auto) Lymph # (Auto) Band[place] # (Auto) Eos # (Auto) Baso # (Auto) Abs Immat Gran (auto) Turbidity Sodium Potassium 3.6 D Chloride Carbon Dioxide Anion Gap BUN Creatinine GFR Calculation BUN/Creatinine Ratio Glucose Glucometer 388 437 Calculated Osmolality Calcium Magnesium Icterus Index Specimen Hemolysis < 15 Assessment and Plan (1) Major depressive disorder, recurrent episode, moderate Current visit: Yes Status: Acute Agree to restart Cymbalta 30mg PO daily on 05/13 (after diarrhea hopefully resolve) and titrate up as needed. Patient feels this medication was particularly helpful in past. Would like to f/u with outpatient providers for med management and therapy after discharge (sees Dr. Hale for psych). Will see patient on Monday 05/15. Discussed recommendations with Dr. Nichole as well.
[2017-05-12] MEDS ORDERED: REFRESH CLASSIC Eye Drops 0.4ml LEFT EYE PRN (19:19)
[2017-05-12] MEDS: SIMVASTATIN 40 MG TABLET PO SCH (21:30)
[2017-05-12] MEDS: INSULIN ASPART 100unit/ml INJECTION SQ PRN (21:57)
[2017-05-12] MEDS: INSULIN DETEMIR 100unit/ml INJECTION SQ SCH (21:58)
[2017-05-12] MEDS ORDERED: PNEUMOCOCCAL VAC ADMIN CHARGE INJ ONE (22:00)
[2017-05-13] MEDS: LEVOTHYROXINE 100 MCG TABLET PO SCH (06:10)
[2017-05-13] MEDS: INSULIN ASPART 100unit/ml INJECTION SQ PRN ×4 (06:21→21:37)
[2017-05-13] MEDS ORDERED: POTASSIUM CHLORIDE 20 MEQ/15 ML ORAL LIQUID PO ONE (08:05)
[2017-05-13] MEDS: APIXABAN 5 MG TABLET PO SCH (08:19)
[2017-05-13] MEDS: POTASSIUM CHLORIDE 20 MEQ/15 ML ORAL LIQUID PO SCH ×3 (08:19→17:22)
[2017-05-13] MEDS: INSULIN ASPART 100unit/ml INJECTION SQ SCH ×3 (08:20→17:23)
[2017-05-13] MEDS: INSULIN DETEMIR 100unit/ml INJECTION SQ SCH (21:31)
[2017-05-14] MEDS: APIXABAN 5 MG TABLET PO SCH ×3 (05:20→20:39)
[2017-05-14] MEDS: DULOXETINE 30 MG CAPSULE PO SCH ×2 (05:20→20:39)
[2017-05-14] MEDS: SIMVASTATIN 40 MG TABLET PO SCH ×2 (05:20→20:39)
[2017-05-14] MEDS: LEVOTHYROXINE 100 MCG TABLET PO SCH (05:56)
[2017-05-14] MEDS: INSULIN ASPART 100unit/ml INJECTION SQ PRN ×3 (06:01→14:44)
[2017-05-14] MEDS: INSULIN ASPART 100unit/ml INJECTION SQ SCH ×3 (09:20→17:37)
[2017-05-14] MEDS: POTASSIUM CHLORIDE 20 MEQ/15 ML ORAL LIQUID PO SCH ×3 (09:21→17:37)
--- NOTE | 2017-05-14 16:18 | Progress Note ---
- Date 05/14/17 Subjective: Donita is seen today in follow up. She is up in dining room, visiting with family members. She is quiet, denies any needs or concerns. Depressed affect noted. Chart reviewed for collateral information. Objective Vital signs: Temperature 97.9 F 05/14/17 15:46 Pulse Rate 76 05/14/17 15:46 Respiratory Rate 18 05/14/17 15:46 Blood Pressure 130/70 05/14/17 15:46 Pulse Oximetry 95 05/14/17 15:46 Height/Weight/BMI: Height 1.73 m Weight 101.5 kg Body Mass Index 34.0 - Constitutional Present: no acute distress - Routine HEENT Exam Head: Present: normocephalic, atraumatic Eye: Present: EOMI, PERRL ENT: Present: mucous membranes moist - Routine Respiratory Exam Present: CTA bilaterally. Absent: rales, rhonchi, crackles - Routine Cardiovascular Exam Present: RRR, S1, S2, no murmur - Routine Abdominal Exam Present: soft, normoactive bowel sounds, non distended, non tender - Routine Extremities Exam Present: non tender - Routine Musculoskeletal Exam Musculoskeletal: Present: moving extremities well - Routine Skin Exam Present: intact, dry, warm - Routine Neurological Exam Present: alert, moving all extremities - Routine Psychiatric Exam Present: cooperative, depressed Results - Labs CBC & Chem 7: 05/12/17 04:34 05/14/17 09:53 Assessment and Plan (1) DM2 (diabetes mellitus, type 2) Current visit: Yes Status: Acute Assessment and Plan: ASSESSMENT: DM2, uncontrolled, with hgb A1c of 13.3%, requiring long-term insulin therapy; Recent DKA -resolved. Hypokalemia, POA. PAF, now sinus. Monitor tele. CHADS2-VASC is 3 for which she has indication for lifelong anticoagulation for stroke prophylaxis. .f/u with Dr. Sofia in 2-4 weeks. Acute respiratory failure, resolved. (Recent vent) MARIAN, resolved. Encephalopathy has resolved. Depression. Infrequent heartburn. Hypothyroid, new Thrombocytopenia. HIT antibodies negative @ [facility]. Left eye subconjunctival hemorrhage Hyperlipidemia Obesity with BMI 34.0 .Plan: 05/14/17 She is slowly improving. BG is still high 200's. She has gotten 18 units of supplemental insulin in the last 24 hours. Will increase both long-acting and short acting insulin. DM2 education when able to tolerate. Continue potassium replacement, monitor for tolerance to the medication. PRN Tums for heartburn. She appears quite depressed- Psychiatry seeing pt. Cymbalta restarted. Home dosing is around 60mg- may need to increase back to home dose. PT/OT per primary team. Supportive care. Continue Eliquis for DVT px. DVT Prophylaxis: Eliquis Resuscitation Status: Full Code - Physician Narrative Narrative: Date: 05/14/17 Time: 1608 Hospital Course Summary Disclaimer: The visit summary below is not to be considered part of the above Progress Note. Hospital Course: ASSESSMENT AND PLAN Recent hospitalization for Acute hypoxic respiratory failure requiring mechanical ventilation (extubated on 05/07/17); shock/multiorgan failure requiring vasopressor support; DKA and metabolic acidosis; severe dehydration; PAF with relatively normal echo; prerenal MARIAN (creatinine peaked at 2.27); mild pancreatitis; rhabdomyolysis; elevated total bilirubin and ammonia level; multiple electrolyte abnormalities; mild UTI treated with Rocephin and without urine culture; thrombocytopenia with platelet count of 65, and heparin was dc' d. She had a central line, art line, and Browne while hospitalized. On discharge , she also had a mild subconjunctival hemorrhage to her left eye, and a sore spot on her lower lip, presumably from ET tube. She was diagnosed with hypothyroidism and started on levothyroxine. Hypokalemia, POA. Unable to tolerate KDUR tablets; will give IV bolus and start KCl suspension. check mg. Repeat K this afternoon. DM2, uncontrolled, with hgb A1c of 13.3%, requiring long-term insulin therapy. Hyperglycemic on admission with BGM >200 -- will monitor BGM for 24 hrs before making adjustments. PAF, now sinus. Monitor tele. CHADS2-VASC is 3 for which she has indication for lifelong anticoagulation for stroke prophylaxis. Continue Eliquis and BB. Will need to f/u with Dr. Sofia in 2-4 weeks. Acute respiratory failure, resolved. IS, activity. MARIAN, resolved. Monitor renal status. Encephalopathy has resolved. Depression. Restart Cymbalta (reportedly home med). Infrequent heartburn. TUMS PRN. Continue Synthroid. Thrombocytopenia. Monitor counts. SCDs for PPX. HIT antibodies negative @ [facility]. Left eye subconjunctival hemorrhage. saline eye drops PRN Hyperlipidemia - on statin. Obesity with BMI 34.0 ASSESSMENT: DM2, uncontrolled, with hgb A1c of 13.3%, requiring long-term insulin therapy; Recent DKA -resolved. Hypokalemia, POA. PAF, now sinus. Monitor tele. CHADS2-VASC is 3 for which she has indication for lifelong anticoagulation for stroke prophylaxis. .f/u with Dr. Sofia in 2-4 weeks. Acute respiratory failure, resolved. (Recent vent) MARIAN, resolved. Encephalopathy has resolved. Depression. Infrequent heartburn. Hypothyroid, new Thrombocytopenia. HIT antibodies negative @ [facility]. Left eye subconjunctival hemorrhage Hyperlipidemia Obesity with BMI 34.0 .Plan: 05/14/17 She is slowly improving. BG is still high 200's. She has gotten 18 units of supplemental insulin in the last 24 hours. Will increase both long-acting and short acting insulin. DM2 education when able to tolerate. Continue potassium replacement, monitor for tolerance to the medication. PRN Tums for heartburn. She appears quite depressed- Psychiatry seeing pt. Cymbalta restarted. Home dosing is around 60mg- may need to increase back to home dose. PT/OT per primary team. Supportive care. Continue Eliquis for DVT px
[2017-05-14] MEDS: INSULIN DETEMIR 100unit/ml INJECTION SQ SCH (20:49)
[2017-05-15] MEDS: LEVOTHYROXINE 100 MCG TABLET PO SCH ×2 (04:12→08:20)
[2017-05-15] MEDS: ACETAMINOPHEN 325 MG TABLET PO PRN ×2 (07:07→21:00)
[2017-05-15] MEDS: POTASSIUM CHLORIDE 20 MEQ/15 ML ORAL LIQUID PO SCH ×3 (08:41→17:46)
[2017-05-15] MEDS: APIXABAN 5 MG TABLET PO SCH ×2 (08:42→21:00)
[2017-05-15] MEDS: INSULIN ASPART 100unit/ml INJECTION SQ SCH ×3 (09:40→17:45)
--- NOTE | 2017-05-15 10:17 | IRU Progress Note ---
- Subjective/Serverity of Illness Date: 05/15/17 Ms. Villegas was seen in her room on inpatient rehabilitation. She has concerns about her fluctuations in blood sugars. Typically they are running over 200. Hospitalist service is managing this and insulin is being provided. She states that her intake is fairly stable at present. In addition she has developed some tingling and numbness of the right third fourth and fifth fingers. Previously it was "numb" she states for some time and now it is just the fingers. We discussed the possibility of either carpal tunnel or ulnar neuropathy. I visited with occupational therapy who will do some ulnar glide therapy to see if that will help. She also reports right buttock numbness. Denies any sore or ulcer there. I asked OT to check that area it when they're working with her. She is also concerned about following up her potassium as nonpatient I told her that her doctor would have to do that. Brief therapy updates: For physical therapy she is standby assist for bed/chair/ wheelchair transfers. She is standby assist for walking 300 feet without assistive device. She is improving. Update on medical problems are actively monitoring or managing as follows: 1. Critical illness myopathy: Transfers appear to be improving. 2. Atrial fibrillation, intermittent with occasional rapid ventricular response : She remains on Eliquis. Denies any palpitations and her heart rhythm sounds regular. 3. Diabetes mellitus type 1, not controlled with recent episode of diabetic ketoacidosis: Blood sugars reviewed. Continue to be above 200. Questions were addressed. 4. Recent thrombocytopenia: This has resolved 5. Hypokalemia: Potassium improved. We discussed the need for outpatient monitoring of this as well. Exam Vital Signs: Temperature 98.2 F 05/15/17 07:32 Pulse Rate 90 05/15/17 08:00 Respiratory Rate 24 05/15/17 07:32 Blood Pressure 128/74 05/15/17 07:32 Pulse Oximetry 96 05/15/17 07:32 Height/Weight/BMI: Height 1.73 m Weight 101.5 kg Body Mass Index 34.0 - Constitutional Present: no acute distress, well nourished, well developed, obese - Routine HEENT Exam Head: Present: normocephalic, atraumatic Eye: Present: EOMI ENT: Present: mucous membranes moist, oropharynx clear - Routine Neck Exam Present: supple - Routine Respiratory Exam Present: CTA bilaterally. Absent: wheezes - Routine Cardiovascular Exam Present: RRR, S1, S2, murmur - Routine Abdominal Exam Present: soft, normoactive bowel sounds, non distended. Absent: tenderness - Routine Extremities Exam Present: edema (trace to 1+ in the lower extremities.), normal capillary refill. Absent: cyanosis, clubbing - Routine Skin Exam Present: dry, warm - Routine Neurological Exam Present: alert, oriented X3, CN II-XII intact Has good strength bilaterally in the upper extremities. Did have some trauma with abrasion to right olecranon process although ulnar groove is not particularly tender. Discussed pathophysiology of ulnar neuropathy if that's what this represents. - Routine Psychiatric Exam Present: normal affect, depressed Results IRU - Labs Labs: Labs reviewed. IRU A/P (1) Myopathy Current visit: Yes Status: Acute Proximal muscle weakness appears improved based on improved transfer ability. She is progressing with therapy. (2) Atrial fibrillation Qualifiers: Atrial fibrillation type: paroxysmal Qualified Code(s): I48.0 - Paroxysmal atrial fibrillation Current visit: Yes Status: Acute No evidence of atrial fibrillation at present. She has had this paroxysmally in [place]. (3) DM type 1 (diabetes mellitus, type 1) Qualifiers: Diabetes mellitus complication status: with hyperglycemia Qualified Code(s) : E10.65 - Type 1 diabetes mellitus with hyperglycemia Current visit: Yes Status: Chronic Blood sugars are variable. Patient was not monitoring her blood sugars at home. We will ask perinatal educator to work with the patient as well. (4) Depression Qualifiers: Depression Type: unspecified Qualified Code(s): F32.9 - Major depressive disorder, single episode, unspecified Current visit: Yes Status: Chronic (5) Paresthesia of upper extremity Current visit: Yes Status: Acute Patient states that she has had some numbness of the entire right hand for some time, possibly going back to [place] hospitalization. At the present it is improved but now she has numbness of the right third fourth and fifth fingers. Strength appears to be adequate. We discussed the fact that this could be related to either carpal tunnel or ulnar neuropathy. Does not appear to be consistent with TIA/CVA at this time. DVT Prophylaxis: Eliquis Resuscitation Status: Full Code - Course Hospital Course: Michael Nichole MD: 05/12/17 10:21 Patient has been cooperative with therapy. Potassium now although and on supplement. Heart sounds regular. Sugars running a bit high. 05/15/17 10:20 Patient is progressing with therapy. Sugars continue to run a bit high. We will ask CDE to work with patient. Heart is regular. Potassium now normal. - Interventions to Obtain Goals PT Treatment Plan: Balance/Proprioception, Functional Activities, Gait Training , Patient/Family Education, Therapeutic Exercise OT Treatment Plan: ADL (Basic Care), Balance Training, IADL, Pt./Family Education, Ther. Exercise for ADL Goals Progress/Modifications: Time spent with patient and on floor reviewing data and documentin min Medical decision-making: Patient now complains of new onset of some numbness in the right third and fourth and fifth fingers. There is no strength loss that I can determine. This does not appear to be consistent with TIA or CVA. It is more consistent with either ulnar neuropathy or carpal tunnel syndrome. I discussed with OT will work on ulnar glide therapy. Secondly, she is concerned about her blood sugars being variable. I told her it takes quite a while to get things settled down and regulated. We will ask CDE to work with the patient as well. Finally, she complains of some right buttock numbness. Not certain what that represents. It does not go down the leg.
--- NOTE | 2017-05-15 13:38 | Progress Note ---
Progress Note: Patient seen briefly for update. She reports feeling better since starting Cymbalta and appears brighter. She would like to increase back to home dose of 60mg daily. Patient prefers to continue taking Cymbalta at night but if it interferes with sleep may need to split dose to 30mg BID or take in AM. Will continue to check on patient.
[2017-05-15] MEDS: INSULIN ASPART 100unit/ml INJECTION SQ PRN (14:42)
[2017-05-15 20:32] VITALS: O2SAT 97
[2017-05-15] MEDS: INSULIN DETEMIR 100unit/ml INJECTION SQ SCH (20:59)
[2017-05-15] MEDS ORDERED: DULOXETINE 60 MG CAPSULE PO SCH (21:00)
[2017-05-15] MEDS: SIMVASTATIN 40 MG TABLET PO SCH (21:00)
[2017-05-16] MEDS: LEVOTHYROXINE 100 MCG TABLET PO SCH (06:36)
[2017-05-16] MEDS: INSULIN ASPART 100unit/ml INJECTION SQ PRN ×2 (06:36→10:13)
[2017-05-16 09:01] VITALS: RESP 16; TEMP 97.9
[2017-05-16] MEDS: APIXABAN 5 MG TABLET PO SCH (09:08)
[2017-05-16] MEDS: INSULIN ASPART 100unit/ml INJECTION SQ SCH ×3 (09:08→17:46)
[2017-05-16] MEDS: POTASSIUM CHLORIDE 20 MEQ/15 ML ORAL LIQUID PO SCH ×3 (09:09→17:46)
--- NOTE | 2017-05-16 14:36 | IRU Progress Note ---
- Subjective/Serverity of Illness Date: 05/16/17 Ms. Villegas was seen in her room on acute inpatient rehabilitation. She is doing well with therapy. Continues to have some numbness in the right hand, fingers 3 , 4 and 5. May be related to old her neuropathy versus carpal tunnel. Recommended that she see her physician about this for consideration of nerve conduction tests at some point. Does not have any other evidence of acute neurologic deficit. We discussed her blood sugars which were continued to require adjustment as an outpatient. She has been counseled by the dietitian as well as by the staff development educator. A new blood glucose monitor was provided to the patient. Exam Vital Signs: Temperature 97.9 F 05/16/17 08:00 Pulse Rate 93 05/16/17 08:00 Respiratory Rate 16 05/16/17 08:00 Blood Pressure 128/78 05/16/17 08:00 Pulse Oximetry 97 05/16/17 08:00 Height/Weight/BMI: Height 1.73 m Weight 96.2 kg Body Mass Index 34.0 - Constitutional Present: no acute distress, well nourished, well developed, obese - Routine HEENT Exam Head: Present: normocephalic Eye: Present: EOMI ENT: Present: mucous membranes moist, oropharynx clear - Routine Neck Exam Present: supple - Routine Respiratory Exam Present: CTA bilaterally. Absent: wheezes - Routine Cardiovascular Exam Present: RRR, S1, S2. Absent: murmur - Routine Extremities Exam Present: no edema - Routine Skin Exam Present: dry, warm - Routine Neurological Exam Present: alert, oriented X3, CN II-XII intact, sensory deficit (numbness right hand identified. No motor weakness.) IRU A/P (1) Myopathy Current visit: Yes Status: Acute Her myopathy weakness has resolved. She is doing well. She is stable for dismissal. (2) Atrial fibrillation Qualifiers: Atrial fibrillation type: paroxysmal Qualified Code(s): I48.0 - Paroxysmal atrial fibrillation Current visit: Yes Status: Acute Upon examination she appears to be in sinus mechanism. She is on Eliquis as she did display atrial fibrillation during her acute hospital stay. (3) DM type 1 (diabetes mellitus, type 1) Qualifiers: Diabetes mellitus complication status: with hyperglycemia Qualified Code(s) : E10.65 - Type 1 diabetes mellitus with hyperglycemia Current visit: Yes Status: Chronic Her blood sugars will continue to require outpatient management. (4) Depression Qualifiers: Depression Type: unspecified Qualified Code(s): F32.9 - Major depressive disorder, single episode, unspecified Current visit: Yes Status: Chronic (5) Paresthesia of upper extremity Current visit: Yes Status: Acute Paresthesias right fingers 3, 4 and 5 unchanged. Likely carpal tunnel versus ulnar neuropathy. DVT Prophylaxis: Eliquis Resuscitation Status: Full Code - Course Hospital Course: Michael Nichole MD: 05/12/17 10:21 Patient has been cooperative with therapy. Potassium now although and on supplement. Heart sounds regular. Sugars running a bit high. 05/15/17 10:20 Patient is progressing with therapy. Sugars continue to run a bit high. We will ask CDE to work with patient. Heart is regular. Potassium now normal. 05/16/17 14:37 She is unwell with therapy. Has been counseled by CDE as well as dietitian. Home today. - Interventions to Obtain Goals PT Treatment Plan: Balance/Proprioception, Functional Activities, Gait Training , Patient/Family Education, Therapeutic Exercise OT Treatment Plan: ADL (Basic Care), Balance Training, IADL, Pt./Family Education, Ther. Exercise for ADL
--- NOTE | 2017-05-16 14:51 | IRU Team Meeting ---
IRU Team Meeting - Nursing Bladder Assistive Devices Utilized:: Absorbent Pad Bladder Management Level of Assist: Modified Independent Bladder Frequency of Accidents: No accidents Bowel Assistive Devices Utilized:: Medication Bowel Management Level of Assist: Independent Bowel Frequency of Accidents: No accidents Vital Signs: Vital Signs - 24 hr 05/15/17 16:00 05/15/17 19:51 05/16/17 08:00 Temperature 98.3 F 98.2 F 97.9 F Pulse Rate 77 86 93 Respiratory Rate 14 18 16 Blood Pressure 114/67 126/68 128/78 Pulse Oximetry 95 97 97 Current Medications: Acetaminophen (Tylenol) 325 mg PO Q5H PRN PRN Reason: Discomfort Last Admin: 05/15/17 21:00 Dose: 325 mg Apixaban (Eliquis) 5 mg PO BID [facility] Last Admin: 05/16/17 09:08 Dose: 5 mg Artificial Tears (Refresh Classic) 1 drop LEFT EYE QID PRN PRN Reason: Dry eyes Duloxetine HCl (Cymbalta) 60 mg PO [facility] Last Admin: 05/15/17 20:59 Dose: 60 mg Insulin Aspart (Novolog) 2 - 8 unit SQ SS PRN; Protocol PRN Reason: Hyperglycemia Last Admin: 05/16/17 10:13 Dose: 7 unit Insulin Aspart (Novolog) 15 unit SQ TIDWM [facility] Last Admin: 05/16/17 12:05 Dose: 15 unit Insulin Detemir (Levemir) 28 unit SQ [facility] Last Admin: 05/15/17 20:59 Dose: 28 unit Levothyroxine Sodium (Synthroid) 100 mcg PO ACB [facility] Last Admin: 05/16/17 06:36 Dose: 100 mcg Metoprolol Tartrate (Lopressor) 25 mg PO BIDWM [facility] Last Admin: 05/16/17 09:08 Dose: 25 mg Pharmacy Profile Note (Lidocaine/Maalox/Benadryl Soln) 5 ml PO Q4H PRN PRN Reason: Pain Potassium Chloride (Kcl Oral Liq 20 Meq/15 Ml) 20 meq PO TIDWM [facility] Last Admin: 05/16/17 12:05 Dose: 20 meq Simvastatin (Zocor) 40 mg PO [facility] Last Admin: 05/15/17 21:00 Dose: 40 mg Current Medical Issues: Diabetes Mellitus, paresthesias right hand Comments: I certify that I personally led the interdisciplinary team meeting and agree with comments, barriers and goals indicated. Team meeting was held in the patient's room with the patient and the following family members present: Patient's sister Patient's blood sugars have been variable. Hospitalist service is adjusting her insulin. She has not expressed any hypoglycemic spells. She has been seen by dietitian as well as certified insert molding operator and has been provided a new blood glucose machine along with instructions on usage. - Dietary She has been instructed in carb counting and glycemic control. She has also been givenThe patient will require an intensive, individualized plan of care to involve physical therapy 90 minutes daily, 5 days weekly, occupational therapy, 90 minutes daily, 5 days weekly, dietitian, rehabilitation nursing on a 24-hour basis and physician management at least 3 days weekly. DPP 1200 diet carb controlled diet which could be a useful guide to losing or maintaining weight for person who lives alone. - Physical Therapy Bed, Chair, Wheelchair Transfer Assist: Modified Independent Ambulation Ability: Independent Ambulation Distance: 1,500 Stair Climbing Ability: Independent Number of Steps Climbed: 12 Car Transfer Ability: Independent Comments: Patient has done well with therapy and has met all goals. She is independent for all transfers and gait. - Occupational Therapy Eating Ability: Independent Grooming Ability: Independent Bathing Ability: Independent Upper Body Dressing Ability: Independent Lower Body Dressing Ability: Independent Tub Transfer Assist: Stand By Assist/Supervision Toileting Assist: Modified Independent Toilet Transfer Assist: Independent Comments: She has met occupational therapy goals for basic ADLs and self-cares. She demonstrates good safety awareness. Education was provided to encourage journaling home blood sugars and food eaten to begin improving awareness of her diabetes. - Goals Physical Therapy Goals: 05/16/17. 1.) Met all goals - discharge planning Occupational Therapy Goals: OT goals 05/16/17: 1.) D/C planning - Care Plan Anticipated Length of Stay (days): 0 Anticipated DC Destination: Home, Self Care I have led this team conference and agree with the plan.
--- NOTE | 2017-05-16 15:43 | Discharge Summary ---
Discharge Information Date of admission: 05/11/17 10:56 Anticipated date of discharge: 05/16/17 Attending Physician: Michael Nichole MD Consults: 05/11/17 11:31 Physician Consult [CONS] Routine Consulting Provider: Radha Taylor Reason For Exam: medical management Ordering Provider has Notified Instructional Paraprofessional: No 05/11/17 15:23 Physician Consult [CONS] Routine Consulting Provider: Tiffany Crowe Reason For Exam: depression Ordering Provider has Notified Instructional Paraprofessional: No 05/12/17 Inpt Diabetic Consult [Inpatient Diabetic Consult] [CONS] Routine Diabetic Diagnosis: E11.65 Uncontrolled T2 DM Diabetic Training: Carb Counting Comment: teach carb counting 05/15/17 Studio Technician Video Operator Consult [Inpatient Diabetic Consult] [CONS] Routine Diabetic Diagnosis: E10.65 Uncontrolled T1 DM Diabetic Training: Monitoring Diabetes Disease Process Problem Solving - Discharge Diagnosis (1) Myopathy Status: Acute (2) Atrial fibrillation Status: Acute (3) DM type 1 (diabetes mellitus, type 1) Status: Chronic (4) Depression Status: Chronic (5) Paresthesia of upper extremity Status: Acute 1. Critical illness myopathy 2. Atrial fibrillation, paroxysmal (noted at [facility]) 3. Diabetes mellitus type 1, not controlled 4. Depression 5. Paresthesias right third, fourth and fifth fingers - Laboratory Labs: 05/15/17 04:48 05/16/17 04:23 History of Present Illness HPI: Ms. Villegas reports that she developed recurrent nausea and vomiting on or about 04/30/2017. She then developed some abdominal pain. It is not clear if she was taking her insulin or not but did not check her blood sugars. Patient had not called in to work and therefore a welfare check was performed. Responders had to break into the patient's house for the patient was found on the floor. She does not know how long she was down. Next thing she remembers was awakening in the hospital. She was initially taken to the emergency department in [place] where she was intubated. She was transported to via [facility] in [place] where she was admitted to the critical care unit. She had severe diabetic ketoacidosis with initial blood sugar over 1000. Other diagnoses included metabolic acidosis , acute hypoxemic respiratory failure and hyponatremia with hyperkalemia. There was also evidence of acute renal failure, rhabdomyolysis and pancreatitis. She was found to have new onset atrial fibrillation as well as a UTI. She was stabilized in [place] but developed evidence of critical illness myopathy. She was very debilitated and weak. She was felt to be a good candidate for inpatient rehabilitation. Hospital Course This is a general summary of the patient's hospital course. For more details refer to the complete medical record. She was admitted to [facility] acute inpatient rehabilitation on . Her blood sugars were monitored carefully. She was seen by diabetic education as well as the dietitian. She was instructed in a 2000-calorie consistent carbohydrate diet. She was instructed in carbohydrate counting. She was placed on a sliding insulin scale. The hospitalist service managed her diabetes. She continued to have blood sugars over 200 on a frequent basis. At the time of dismissal she is sent home on Levemir 20 units at bedtime daily plus NovoLog 15 units with each meal. She was instructed to check her blood sugars fasting and 2 hours after each meal. A new blood glucose monitor was provided and she is instructed to write the values down to bring to her doctor. During her acute hospitalization in [place] she did display paroxysmal atrial fibrillation. For this reason she was started on Eliquis 5 mg twice a day. She is also on metoprolol 25 mg twice daily. She is on levothyroxine and simvastatin 40 mg at at bedtime daily. She initially had significant hypokalemia at 2.8 on 05/12/2017. This was supplimented and by the time of dismissal on May 16, her potassium was 3.6. Dismissal hemoglobin was 11.5. Because of symptoms of depression, she was seen by Dr. Tiffany Crowe who recommended continuing the Cymbalta and increasing the dose to 60 mg daily which she was sent home on. She was seen by occupational therapy. By the time of dismissal the patient was independent with shower transfer assist, upper and lower body dressing and bathing ability. She was also seen by physical therapy. Initially upon screening she required maximum assistance for walking and moderate assistance for toilet transfers. By the time dismissal she was independent with sit to stand chair transfer ability, stand to sit chair transfer ability, bed/chair/ wheelchair transfers. She was able to walk independently over 1000 feet. She was also independent with stair climbing. She was dismissed in improved and stable condition on 05/16/2017. She will be living with her sister for at least a short time. It was recommended to the patient that she follow-up with her doctor, Dr. Gabriela Hernández in [place] in the next week to follow-up her blood sugars. She will be kept off work until released by Dr. Hernández. In addition, she has noted some numbness of the right third fourth and fifth fingers. It is not clear if this represents an ulnar neuropathy versus carpal tunnel syndrome and further outpatient evaluation would be indicated. However there is no indication of stroke or TIA in this regard. Hospital course: ASSESSMENT AND PLAN Recent hospitalization for Acute hypoxic respiratory failure requiring mechanical ventilation (extubated on 05/07/17); shock/multiorgan failure requiring vasopressor support; DKA and metabolic acidosis; severe dehydration; PAF with relatively normal echo; prerenal MARIAN (creatinine peaked at 2.27); mild pancreatitis; rhabdomyolysis; elevated total bilirubin and ammonia level; multiple electrolyte abnormalities; mild UTI treated with Rocephin and without urine culture; thrombocytopenia with platelet count of 65, and heparin was dc' d. She had a central line, art line, and Browne while hospitalized. On discharge , she also had a mild subconjunctival hemorrhage to her left eye, and a sore spot on her lower lip, presumably from ET tube. She was diagnosed with hypothyroidism and started on levothyroxine. Hypokalemia, POA. Unable to tolerate KDUR tablets; will give IV bolus and start KCl suspension. check mg. Repeat K this afternoon. DM2, uncontrolled, with hgb A1c of 13.3%, requiring long-term insulin therapy. Hyperglycemic on admission with BGM >200 -- will monitor BGM for 24 hrs before making adjustments. PAF, now sinus. Monitor tele. CHADS2-VASC is 3 for which she has indication for lifelong anticoagulation for stroke prophylaxis. Continue Eliquis and BB. Will need to f/u with Dr. Sofia in 2-4 weeks. Acute respiratory failure, resolved. IS, activity. MARIAN, resolved. Monitor renal status. Encephalopathy has resolved. Depression. Restart Cymbalta (reportedly home med). Infrequent heartburn. TUMS PRN. Continue Synthroid. Thrombocytopenia. Monitor counts. SCDs for PPX. HIT antibodies negative @ [facility]. Left eye subconjunctival hemorrhage. saline eye drops PRN Hyperlipidemia - on statin. Obesity with BMI 34.0 ASSESSMENT: DM2, uncontrolled, with hgb A1c of 13.3%, requiring long-term insulin therapy; Recent DKA -resolved. Hypokalemia, POA. PAF, now sinus. Monitor tele. CHADS2-VASC is 3 for which she has indication for lifelong anticoagulation for stroke prophylaxis. .f/u with Dr. Sofia in 2-4 weeks. Acute respiratory failure, resolved. (Recent vent) MARIAN, resolved. Encephalopathy has resolved. Depression. Infrequent heartburn. Hypothyroid, new Thrombocytopenia. HIT antibodies negative @ [facility]. Left eye subconjunctival hemorrhage Hyperlipidemia Obesity with BMI 34.0 .Plan: 05/14/17 She is slowly improving. BG is still high 200's. She has gotten 18 units of supplemental insulin in the last 24 hours. Will increase both long-acting and short acting insulin. DM2 education when able to tolerate. Continue potassium replacement, monitor for tolerance to the medication. PRN Tums for heartburn. She appears quite depressed- Psychiatry seeing pt. Cymbalta restarted. Home dosing is around 60mg- may need to increase back to home dose. PT/OT per primary team. Supportive care. Continue Eliquis for DVT px Time spent with patient: greater than 35 minutes Resuscitation Status: Full Code Discharge Plan - Med Rec/Dispo Referrals/Follow Up: Gabriela Hernández MD [Physician] - (f/u with PCP 1-2 weeks after discharge from Rehab. Will Need BMP at follow up apt ) Prescriptions: New Insulin Detemir [Levemir] 28 unit SQ HS #1 vial Potassium Chloride Oral Liq [KCL ORAL LIQ 20 mEq/15 ml] 20 meq PO TIDWM #80 ml Duloxetine [Cymbalta] 60 mg PO HS #30 cap Insulin Aspart [NovoLOG] 15 unit SQ TIDWM #1 vial Continue Apixaban [Eliquis] 5 mg PO BID Metoprolol Tartrate [Lopressor] 25 mg PO BIDWM Levothyroxine Tab [Synthroid] 1 tab PO ACB Simvastatin [Zocor] 40 mg PO HS No Action Insulin Detemir [Levemir] 20 unit SQ HS Insulin Aspart [Novolog] 7 unit SQ TIDWM - Disposition 01 Discharged Home, Self-Care - Dismissal Complete Discharge Instructions are:: Complete
--- NOTE | 2017-05-16 15:57 | Letter to Referring Physician ---
Dear Dr. Hernández, This is a brief note to bring you up-to-date on the status of Donita Villegas and her stay on the acute inpatient rehabilitation unit at [facility]. As you are likely aware, this patient was admitted to [facility] on 04/30/17 for DKA, acute respiratory failure, metabolic acidosis and acute renal failure. The patient was stabilized while on the acute level and admitted to inpatient rehabilitation unit at [facility] on May 11, 2017. While on inpatient rehabilitation, this patient was seen by occupational therapy and physical therapy and improved overall in their functional ability. We also monitored and managed the patient's diabetes while on Acute Rehab. Please see a copy of the history and physical examination as well as discharge summary enclosed with this letter for further details. We do recommend that the patient obtain a BMP in about 5-7 days after dismissal. We have not arranged this at the time of the Acute Rehab stay, but did instruct her to contact your office for a follow up appointment. Thank you for allowing us to be involved in this nice patient's care. Please contact me directly should you have any questions regarding their stay on the inpatient rehabilitation unit. Sincerely, Michael Nichole M.D.
[2017-05-16 16:31] VITALS: BP 107/84; PULSE 76
== END 2017-05-16 18:09 | disposition home or self-care (01) | DRG 92 ==
PROVIDERS: ADMIT Internal Medicine; ATTEND Internal Medicine